=== PATIENT | male | born 1945 | race Caucasian/White ===

== ENCOUNTER → 2018-05-18 08:56 | Outpatient (CLI) | payer MEDICARE, SELFPAY ==
--- NOTE | 2018-05-18 | DI.US.S_ITS ---
PROCEDURE: US RETRO PERITONEAL LIMITED INDICATIONS: AAA TECHNIQUE: Real time scanning was performed of the aorta and iliac arteries, with image documentation. COMPARISON: None. FINDINGS: Aorta: Proximal aortic diameter measures 2.2 cm. Mid-aorta measures 1.9 cm. Distal aortic diameter is mildly aneurysmal measuring up to 3.0 cm AP and 3.7 cm transverse with a fusiform tapering above and below over 6.5 cm length. Iliac arteries: Right common iliac artery measures 1.2 cm. Left common iliac artery measures 1.3 cm. IMPRESSION: Distal abdominal aortic aneurysm with a maximal axial dimension measuring up to 3.7 cm transverse and 3.0 cm AP. Dictated by: Hayden Castro M.D. on 05/18/2018 at 12:54 Approved by: Hayden Castro M.D. on 05/18/2018 at 12:56
== END ==
PROVIDERS: Visit Provider Internal Medicine Cardiovascular Disease
DX: I71.4 Abdominal aortic aneurysm, without rupture (principal)
CPT/HCPCS: 76775

== ENCOUNTER → 2019-06-27 13:20 | Outpatient (CLI) | payer MEDICARE, SELFPAY ==
--- NOTE | 2019-06-27 | DI.US.S_ITS ---
PROCEDURE: US RETRO PERITONEAL LIMITED INDICATIONS: abdominal aortic aneurysm without rupture TECHNIQUE: Real time scanning was performed of the aorta and iliac arteries, with image documentation. COMPARISON: [facility], CT, IVP (ABD & PEL WWO CONTRAST), 12/24/2017, 10:51. [facility], US, US RETRO PERITONEAL LIMITED, 05/18/2018, 9:39. FINDINGS: Aorta: Proximal aortic diameter measures 2 cm. Mid-aorta measures 1.8 cm. There is a distal abnormal aortic aneurysm seen that measures 3.3 cm AP by 3.4 cm transversely, with a craniocaudal extent of 6.2 cm. Previously, this measured 3 x 3.7 x 6.5 cm. The aneurysm demonstrates mural thrombus. Iliac arteries: Right common iliac artery measures 1 cm. Left common iliac artery measures 0.9 cm. IMPRESSION: Distal abdominal aortic aneurysm, which is slightly increased in size compared to the prior ultrasound examination. Dictated by: Chuy Hurtado M.D. on 06/27/2019 at 17:27 Approved by: Chuy Hurtado M.D. on 06/27/2019 at 17:28
== END ==
PROVIDERS: Visit Provider Internal Medicine Cardiovascular Disease
DX: I71.4 Abdominal aortic aneurysm, without rupture (principal)
CPT/HCPCS: 76775

== ENCOUNTER → 2019-07-27 08:39 | Outpatient (CLI) | payer MEDICARE, SELFPAY ==
--- NOTE | 2019-07-27 | DI.US.S_ITS ---
PROCEDURE: US THYROID INDICATIONS: NONTOXIC SINGLE THYROID NODULE TECHNIQUE: Real-time scanning was performed of the thyroid gland, with image documentation. COMPARISON: None available at time of interpretation. FINDINGS: Right: Thyroid lobe measures 4.1 x 1.8 x 1.2 cm, and is homogeneous in echotexture. Left: Thyroid lobe measures 2.9 x 1.1 x 1.0 cm, and is homogenous in echotexture. Isthmus: 3.0 mm thick. Nodule number: 1 Location: Right superior Size: 1.7 x 1.1 x 1.0 cm. Composition: Predominantly solid Echogenicity: Isoechoic Shape: wider than tall. Margins: Smooth Echogenic foci: None Total points: 3 ACR TI-RADS category: Mildly suspicious IMPRESSION: Mildly suspicious right thyroid nodule. Recommend continued followup ultrasound as detailed below. ACR TI-RADS definitions and recommendations: TI-RADS 1 (benign): 0 points. FNA not needed. TI-RADS 2 (not suspicious): 2 points. FNA not needed. TI-RADS 3 (mildly suspicious): 3 points. * FNA if 2.5 cm or larger, follow up if 1.5 cm or larger (at 1, 3, and 5 years). TI-RADS 4 (moderately suspicious): 4-6 points. * FNA if 1.5 cm or larger, follow up if 1 cm or larger (at 1, 2, 3, and 5 years). TI-RADS 5 (highly suspicious): 7 points or more. * FNA if 1 cm or larger, follow up if 0.5 cm or larger (every year for 5 years). Dictated by: Ruy Valle [facility] Interpreted: Ashlee Smith MD on 08/02/2019 at 14:48 Approved by: Ashlee Smith MD, PhD on 08/02/2019 at 14:54
== END ==
PROVIDERS: PCP Internal Medicine; Visit Provider Internal Medicine
DX: E04.1 Nontoxic single thyroid nodule (principal)
CPT/HCPCS: 76536

== ENCOUNTER → 2020-01-11 11:20 | Outpatient (CLI) | payer MEDICARE, SELFPAY ==
[2020-01-11 12:39] LABS: Hemoglobin A1C% w Est Avg Glu 6.4 % (4.0-6.0)
[2020-01-11 12:57] LABS: Alanine Aminotransferase 17 IU/L (<50); Albumin 4.5 g/dL (3.5-5.0); Albumin Globulin Ratio 1.5 (1.0-2.8); Alkaline Phosphatase 82 U/L (38-126); Aspartate Aminotransferase 27 IU/L (17-59); BUN Creatinine Ratio 19.4 (6-22); Bilirubin Total 0.6 mg/dL (0.2-1.3); Blood Urea Nitrogen 21 mg/dL (9-20); Calcium 10.7 mg/dL (8.4-10.2); Carbon Dioxide 25 mmol/L (22-32); Chloride 107 mmol/L (98-107); Cholesterol 118 mg/dL (140-199); Estimated Glomerular Filt Rate > 60.0 mL/min (>60); Glucose 102 mg/dL (80-110); HDL Cholesterol 32 mg/dL (40-60); HEMOLYSIS < 15 (0-50); LDL Cholesterol Calculated 55 mg/dL (<100); Potassium 4.6 mmol/L (3.4-5.1); Sodium 143 mmol/L (137-145); Total Protein 7.5 g/dL (6.3-8.2); Triglycerides 153 mg/dL (35-150)
[2020-01-11 13:45] LABS: Vitamin B12 211 pg/mL (239-931)
== END ==
PROVIDERS: PCP Internal Medicine; Referring Provider Internal Medicine; Visit Provider Internal Medicine
DX: E78.5 Hyperlipidemia, unspecified (principal); I10 Essential (primary) hypertension; E11.9 Type 2 diabetes mellitus without complications
CPT/HCPCS: 36415; 80053; 80061; 82607; 83036

== ENCOUNTER → 2020-10-08 10:02 | Outpatient (CLI) | payer MEDICARE, SELFPAY ==
[2020-10-08 12:06] LABS: TSH w/ Reflex to FT4 5.27 uIU/mL (0.47-4.68)
[2020-10-08 18:44] LABS: Free T4, Direct Thyroxine 1.18 ng/dL (0.78-2.19)
== END ==
PROVIDERS: PCP Internal Medicine; Referring Provider Internal Medicine; Visit Provider Internal Medicine
DX: E03.9 Hypothyroidism, unspecified (principal)
CPT/HCPCS: 36415; 84439; 84443

== ENCOUNTER → 2021-01-30 09:16 | Outpatient (CLI) | payer MEDICARE, SELFPAY ==
[2021-01-30 11:09] LABS: Free T3, Triiodothyronine Free 3.27 pg/mL (2.77-5.27); Free T4, Direct Thyroxine 1.06 ng/dL (0.78-2.19)
== END ==
PROVIDERS: PCP Internal Medicine; Referring Provider Internal Medicine; Visit Provider Internal Medicine
DX: E03.9 Hypothyroidism, unspecified (principal)
CPT/HCPCS: 36415; 84439; 84443; 84481

== ENCOUNTER → 2021-06-24 10:08 | Outpatient (CLI) | payer MEDICARE, SELFPAY ==
[2021-06-24 11:14] LABS: Add Manual Diff / Slide Review NO; Basophils Absolute Auto 100 /uL (0-100); Basophils Percent Auto 1.2 % (0-2); Eosinophils Absolute Auto 300 /uL (0-450); Eosinophils Percent Auto 3.5 % (2-4); Hematocrit 44.9 % (41-53); Hemoglobin 15.2 g/dL (13.5-17.5); Lymphocytes Absolute Auto 2400 /uL (1100-4500); Lymphocytes Percent Auto 27.1 % (25-40); Mean Corpuscular HGB Conc 33.9 % (30-36); Mean Corpuscular Hemoglobin 29.3 PG (26-34); Mean Corpuscular Volume 86.6 fL (80-100); Monocytes Absolute Auto 600 /uL (0-900); Monocytes Percent Auto 6.3 % (3-14); Neutrophils Absolute Auto 5500 /uL (1500-7000); Neutrophils Percent Auto 61.9 % (50-75); Platelet Count 226 X10^3/uL (150-400); Red Blood Cell Count 5.19 X10^6/uL (4.5-5.9); Red Cell Distribution Width 14.5 % (11.6-14.8); White Blood Cell Count 8.9 X10^3/uL (4.5-11.0)
[2021-06-24 12:01] LABS: BUN Creatinine Ratio 11.3 (6-22); Blood Urea Nitrogen 14 mg/dL (9-20); Carbon Dioxide 30 mmol/L (22-32); Chloride 106 mmol/L (98-107); Cholesterol 141 mg/dL (140-199); Estimated Glomerular Filt Rate 56.7 mL/min (>60); Glucose 221 mg/dL (80-110); HDL Cholesterol 37 mg/dL (40-60); HEMOLYSIS < 15 (0-50); LDL Cholesterol Calculated 73 mg/dL (<100); Potassium 3.7 mmol/L (3.4-5.1); Sodium 147 mmol/L (137-145); Triglycerides 154 mg/dL (35-150)
== END ==
PROVIDERS: PCP Internal Medicine; Referring Provider Internal Medicine Cardiovascular Disease; Visit Provider Internal Medicine Cardiovascular Disease
DX: I10 Essential (primary) hypertension (principal); E78.5 Hyperlipidemia, unspecified
CPT/HCPCS: 36415; 80048; 80061; 85025

== ENCOUNTER → 2021-07-15 10:04 | Outpatient (CLI) | payer MEDICARE, SELFPAY ==
--- NOTE | 2021-07-15 | DI.US.S_ITS ---
PROCEDURE: US ABD AORTA ANEURYSM SCREEN INDICATIONS: Abdominal aortic aneurysm, without rupture TECHNIQUE: Real time scanning was performed of the aorta and iliac arteries, with image documentation. COMPARISON: [facility], CT, IVP (ABD & PEL WWO CONTRAST), 12/24/2017, 10:51. [facility], , US RETRO PERITONEAL LIMITED, 06/27/2019, 13:31. [facility], , US RETRO PERITONEAL LIMITED, 05/18/2018, 9:39. FINDINGS: Aorta: Proximal aortic diameter measures 2 cm. Mid-aorta measures 2.2 cm. A distal abdominal aortic aneurysm is again seen that measures 3.7 cm AP by 3.8 cm transversely, with a craniocaudal extent of 7 cm. Mural thrombus can be seen. Previously, this measured 3.3 cm AP x 3.4 cm transversely, with a craniocaudal extent of 6.2 cm. Iliac arteries: Right common iliac artery measures 1 cm. Left common iliac artery measures 1.1 cm. IMPRESSION: Mildly increased size of the known distal abdominal aortic aneurysm, which now measures 3.7 cm AP. Dictated by: Chuy Hurtado M.D. on 07/15/2021 at 10:18 Approved by: Chuy Hurtado M.D. on 07/15/2021 at 10:21
== END ==
PROVIDERS: PCP Family Medicine; Referring Provider Internal Medicine Cardiovascular Disease; Visit Provider Internal Medicine Cardiovascular Disease
DX: I71.4 Abdominal aortic aneurysm, without rupture (principal)
CPT/HCPCS: 76770

== ENCOUNTER → 2021-09-17 09:37 | Outpatient (CLI) | payer MEDICARE, SELFPAY ==
[2021-09-17 10:46] LABS: Hemoglobin A1C% w Est Avg Glu 6.2 % (4.0-6.0)
[2021-09-17 11:42] LABS: TSH w/ Reflex to FT4 6.41 uIU/mL (0.47-4.68)
[2021-09-17 12:18] LABS: Free T4, Direct Thyroxine 1.06 ng/dL (0.78-2.19)
[2021-09-17 14:55] LABS: Creatinine Urine Random 217.4 mg/dL
[2021-09-17 15:06] LABS: Microalbumi Creatinin Ratio Ur 11.4 ug/mg CR (<30); Microalbumin Urine Random 2.5 mg/dL (0-1.6)
== END ==
PROVIDERS: PCP Family Medicine; Referring Provider Family Medicine; Visit Provider Family Medicine
DX: E78.2 Mixed hyperlipidemia (principal); I10 Essential (primary) hypertension; K22.70 Barrett's esophagus without dysplasia; R73.9 Hyperglycemia, unspecified
CPT/HCPCS: 36415; 82043; 82570; 83036; 84439; 84443

== ENCOUNTER → 2021-09-20 11:32 | Outpatient (CLI) | payer MEDICARE, SELFPAY ==
--- NOTE | 2021-09-20 11:33 | DI.CT.S_ITS ---
PROCEDURE: CT LUNG LOW DOSE SCREENING INDICATIONS: >30 pack year smoking hx and current smoker TECHNIQUE: Noncontrast 2.0-2.5 mm thick sections acquired from the pulmonary apices to the posterior costophrenic angles. 7 mm thick axial MIP, and 5 mm coronal and sagittal reformats were then acquired. A low radiation dose technique was utilized. COMPARISON: None. FINDINGS: Image quality: Diagnostic, given the low radiation dose technique. Lungs and pleura: Centrilobular and paraseptal emphysematous changes . Faint subpleural reticulation, most prominent in the right lower lobe. No consolidation, pleural effusion, or pneumothorax. No suspicious pulmonary nodule or mass. Mediastinum: Heart size is normal. No pericardial effusion. No mediastinal adenopathy by size criteria. Thoracic aorta and central pulmonary arteries are normal in size. Calcified atheromatous change of the aorta. Esophagus is normal in caliber. No hiatal hernia. Bones and chest wall: Multilevel degenerative change. No vertebral body compression fractures. No axillary or supraclavicular adenopathy by size criteria. Mild heterogeneity of the right thyroid, likely reflecting the previously demonstrated nodule. Abdomen: Visualized upper abdomen solid organs and bowel loops appear normal in the absence of contrast. IMPRESSION: No significant abnormality. LUNG-RADS 1; continue annual screening in 12 months. Dictated by: Hesham Junior M.D. on 09/20/2021 at 13:31 Approved by: Hesham Junior M.D. on 09/20/2021 at 13:44
== END ==
PROVIDERS: PCP Family Medicine; Referring Provider Family Medicine; Visit Provider Family Medicine
DX: Z13.89 Encounter for screening for other disorder (principal); Z12.2 Encounter for screening for malignant neoplasm of respiratory organs; F17.200 Nicotine dependence, unspecified, uncomplicated
CPT/HCPCS: 71250

== ENCOUNTER 2022-03-04 13:14 | Day surgery (SDC) | payer MEDICARE, SELFPAY ==
--- NOTE | 2022-03-04 | PATH_ITS ---
[facility] Accession Number: [id number] No. of containers..01 Tissue . 01 Material submitted: . esophagus, E-G Junction - GE JUNCTION BIOPSY . 01 Diagnosis: Gastroesophageal Junction, Biopsy: Squamocolumnar junctional mucosa with specialized intestinal metaplasia, consistent with Lraose's esophagus. Negative for dysplasia and malignancy. V 03/06/2022 1400 Local . 01 Electronically signed: . Vijaya Valdivia MD, Pathologist NPI- [id number] . 01 Gross description: . Received in formalin in a specimen container, labeled with the patient's name and medical record number, designated GE junction, is a single piece of tissue fragment that measures 0.2 cm in diameter. The specimen is entirely submitted in cassette A1 ([id number]) /FRR 03/06/2022 0241 Local . 01 Pathologist provided ICD-10: K22.70 . 01 CPT . 612176 Specimen Comment: A courtesy copy of this report has been sent to [phone] Performed at: 01 [facility] [address] [place] [address] [id number] MD Pablo Vila MD Phone: [phone]
[2022-03-04 05:08] VITALS: BP 127/70; PULSE 56; RESP 16; O2SAT 98
[2022-03-04 13:33] VITALS: BP 157/77; PULSE 75; RESP 16; TEMP 36.3; O2SAT 99; BMI 23.0
[2022-03-04] MEDS: LACTATED RINGERS 1,000 ML 200 ML IV (14:00)
[2022-03-04 14:08] VITALS: BMI 23.0
[2022-03-04 14:22] LABS: COVID19 -Nasal RAPID Negative (Negative)
--- NOTE | 2022-03-04 14:30 | PM.PREOP ---
Pre-operative Note Interval Note History & Physical reviewed/Exam performed by Physician: Yes Changes to H&P: No
[2022-03-04] MEDS: LIDOCAINE 4% SOLN 50 ML 20 ML TOP (14:45)
[2022-03-04] MEDS: fentaNYL 250 MCG/5 ML INJ 100 MCG IV (14:48)
[2022-03-04] MEDS: MIDAZOLAM 5 MG/5 ML VIAL 4 MG IV (14:48)
--- NOTE | 2022-03-04 14:57 | PM.OP.EGD ---
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 Time out was performed. Procedural sedation was administered with Versed and Fentanyl. A bite block was placed. the scope was inserted into the mouth and advanced through the esophagus and into the stomach. The pylorus was intubated and the duodenum was normal to the 2nd portion. The scope was retroflexed within the stomach and there was no hiatal hernia. No ulcers, or gastritis. The scope was withdrawn into the esophagus the Z line was seen at 40 cm from the incisions. There was no humberto Larose's masses or strictures. A biopsy of the GE junction was performed forceps. Stomach was desufflated and scope removed. Patient tolerated procedure well. Specimen(s): other (GE junction) Complications: none Impression: Normal esophagoduodenoscopy Post-procedure Plan for aftercare: Will notify with pathology Disposition: same day surgery
[2022-03-04 14:58] VITALS: BP 137/73; PULSE 73; RESP 16; TEMP 36.3; O2SAT 92
[2022-03-04 15:03] VITALS: BP 127/66; PULSE 62; RESP 18; TEMP 37.5; O2SAT 95
[2022-03-04 15:13] VITALS: BP 136/75; PULSE 63; RESP 15; O2SAT 98
[2022-03-04 15:20] VITALS: BP 137/71; PULSE 60; RESP 16; TEMP 36.1; O2SAT 97
== END 2022-03-04 15:32 | disposition home or self-care (01) ==
PROVIDERS: PCP Family Medicine; Referring Provider Surgery; Visit Provider Surgery
PROC: 0DJ08ZZ Inspection of Upper Intestinal Tract, Via Natural or Artificial Opening Endoscopic (ICD-10-PCS; CPT 43235; principal; 2022-03-04 14:30)
DX: K22.70 Barrett's esophagus without dysplasia (principal); Z87.19 Personal history of other diseases of the digestive system; Z20.822 Contact with and (suspected) exposure to COVID-19
CPT/HCPCS: 43239; 87635; C9803; J2250; J3010

== ENCOUNTER → 2022-06-13 09:43 | Outpatient (CLI) | payer MEDICARE, SELFPAY ==
[2022-06-13 10:41] LABS: Add Manual Diff / Slide Review NO; Basophils Absolute Auto 100 /uL (0-100); Basophils Percent Auto 1.2 % (0-2); Eosinophils Absolute Auto 100 /uL (0-450); Eosinophils Percent Auto 1.4 % (2-4); Hematocrit 43.3 % (41-53); Hemoglobin 14.7 g/dL (13.5-17.5); Lymphocytes Absolute Auto 2000 /uL (1100-4500); Lymphocytes Percent Auto 22.5 % (25-40); Mean Corpuscular HGB Conc 33.9 % (30-36); Mean Corpuscular Hemoglobin 28.6 PG (26-34); Mean Corpuscular Volume 84.4 fL (80-100); Monocytes Absolute Auto 600 /uL (0-900); Monocytes Percent Auto 6.9 % (3-14); Neutrophils Absolute Auto 6100 /uL (1500-7000); Platelet Count 197 X10^3/uL (150-400); Red Blood Cell Count 5.12 X10^6/uL (4.5-5.9)
[2022-06-13 10:50] LABS: Hemoglobin A1C% w Est Avg Glu 5.9 % (4.0-6.0)
[2022-06-13 11:00] LABS: Alanine Aminotransferase 13 IU/L (<50); Albumin 4.2 g/dL (3.5-5.0); Albumin Globulin Ratio 1.4 (1.0-2.8); Alkaline Phosphatase 92 U/L (38-126); Aspartate Aminotransferase 22 IU/L (17-59); BUN Creatinine Ratio 15.9 (6-22); Bilirubin Total 0.8 mg/dL (0.2-1.3); Blood Urea Nitrogen 20 mg/dL (9-20); Calcium 9.4 mg/dL (8.4-10.2); Carbon Dioxide 27 mmol/L (22-32); Chloride 106 mmol/L (98-107); Cholesterol 122 mg/dL (140-199); Estimated Glomerular Filt Rate 59 mL/min (>60); Glucose 99 mg/dL (80-110); HDL Cholesterol 38 mg/dL (40-60); HEMOLYSIS < 15 (0-50); LDL Cholesterol Calculated 61 mg/dL (<100); Potassium 3.9 mmol/L (3.4-5.1); Sodium 145 mmol/L (137-145); Total Protein 7.2 g/dL (6.3-8.2); Triglycerides 116 mg/dL (35-150)
[2022-06-13 11:26] LABS: Prostate Specific Antigen Scrn 0.641 ng/mL (0.1-4.0)
[2022-06-13 11:27] LABS: TSH w/ Reflex to FT4 5.95 uIU/mL (0.47-4.68)
[2022-06-13 12:15] LABS: Free T4, Direct Thyroxine 1.39 ng/dL (0.78-2.19)
[2022-06-13 16:14] LABS: Creatinine Urine Random 163.8 mg/dL
[2022-06-13 16:18] LABS: Microalbumi Creatinin Ratio Ur 22.5 ug/mg CR (<30); Microalbumin Urine Random 3.7 mg/dL (0-1.6)
== END ==
PROVIDERS: PCP Family Medicine; Referring Provider Family Medicine; Visit Provider Family Medicine
DX: E03.9 Hypothyroidism, unspecified (principal); Z87.898 Personal history of other specified conditions; I10 Essential (primary) hypertension; Z12.5 Encounter for screening for malignant neoplasm of prostate; E78.2 Mixed hyperlipidemia; R73.9 Hyperglycemia, unspecified
CPT/HCPCS: 36415; 80053; 80061; 82043; 82570; 83036; 84439; 84443; 85025; G0103

== ENCOUNTER → 2022-08-28 10:07 | Outpatient (CLI) | payer MEDICARE, SELFPAY ==
--- NOTE | 2022-08-28 10:10 | DI.US.S_ITS ---
PROCEDURE: US RETRO PERITONEAL LIMITED INDICATIONS: AORTIC ANEURYSM WITHOUT RUPTURE TECHNIQUE: Real time scanning was performed of the aorta and iliac arteries, with image documentation. COMPARISON: [facility], RETRO PERITONEAL LIMITED, 05/18/2018, 9:39. [facility], ABD AORTA ANEURYSM SCREEN, 07/15/2021, 10:51. [facility], RETRO PERITONEAL LIMITED, 06/27/2019, 13:31. FINDINGS: Aorta: Proximal aortic diameter measures 2.3 cm. Mid-aorta measures 2 cm. A fusiform distal abdominal aortic aneurysm is seen, which measures 4.3 cm AP, with a transverse extent of 4 cm scanned a craniocaudal length of 7.2 cm. Previously, this measured 3.7 x 3.8 x 7 cm. Iliac arteries: Right common iliac artery measures 1.6 cm. Left common iliac artery measures 1.2 cm. IMPRESSION: Distal abdominal aortic aneurysm seen, which is slightly increased in size compared to the prior. Dictated by: Chuy Hurtado M.D. on 08/28/2022 at 11:53 Approved by: Chuy Hurtado M.D. on 08/28/2022 at 11:54
== END ==
PROVIDERS: PCP Family Medicine; Referring Provider Internal Medicine Cardiovascular Disease; Visit Provider Internal Medicine Cardiovascular Disease
DX: I71.40 Abdominal aortic aneurysm, without rupture, unspecified (principal)
CPT/HCPCS: 76775

== ENCOUNTER → 2022-09-03 07:54 | Outpatient (CLI) | payer MEDICARE, SELFPAY ==
--- NOTE | 2022-09-03 | DI.ECHO.S_ITS ---
[facility] +---------+ [facility] +---------+ : : [address] : : : : [id number] : : : : Phone: [phone]+ Echocardiogram Report + + :Name: ARUN REYES Study Date: 09/03/2022 Height: 70 in : :[facility] ReadingLocation: Weight: 160 lb : : Gender: Male BSA: 1.9 m2 : :: 1945 Age: 76 yrs BP: 155/89 mmHg: :Reason For Study: MURMUR, AAA : :Ordering Physician: SINCERE, : :MINESH Performed By: Elayne Villafana : :Referring: MINESH FLORES : + + Interpretation Summary 1) Normal left ventricular thickness, size, wall motion, and systolic function (EF 60-65%). 2) Normal right ventricular size and function. 3) Sclerotic aortic valve with minimal aortic stenosis (mean gradient 5mmHg, valve area 2.0cm2). 4) No prior Echo available for comparison. Procedure: A two-dimensional transthoracic echocardiogram with color flow and Doppler was performed. The study quality was technically good. There is no prior echocardiogram noted for this patient. The patient was in sinus rhythm with heart rates between 62-68 bpm during the exam. Left Ventricle: The left ventricle is normal in size and wall thickness. The ejection fraction is estimated to be 60-65%. Left ventricular systolic function appears normal without focal wall motion abnormalities. Diastolic parameters suggest a relaxation abnormality of the left ventricle, consistent with probable normal filling pressures. Right Ventricle: The right ventricle is normal in size and function. Atria: The left atrium is moderately dilated. Right atrial size is normal. There is no Doppler evidence for an interatrial shunt. Mitral Valve: The mitral valve is normal in structure and function. There is trace mitral regurgitation. Aortic Valve: The aortic valve is trileaflet. The aortic valve is slightly calcified. Sclerotic aortic valve with minimal aortic stenosis (mean gradient 5mmHg, valve area 2.0cm2). No aortic regurgitation is present. Tricuspid Valve: The tricuspid valve is normal in structure and function. There is mild tricuspid regurgitation. The right ventricular systolic pressure is estimated to be at least 20 mmHg based on an estimated right atrial pressure of 3 mm Hg. Pulmonic Valve: The pulmonic valve leaflets are thin and pliable; valve motion is normal. There is mild pulmonic regurgitation. Great Vessels: The aortic root is normal size. The dimensions of the ascending aorta are normal. The aortic arch could not be visualized. The IVC is of normal diameter and collapses greater than 50% with a sniff. This suggests a low right atrial pressure of 3 mm Hg. Pericardium/ Pleura There is no pericardial effusion. There is no pleural effusion. MMode/2D Measurements & Calculations LVIDd: 5.1 cm LVOT diam: 2.1 cm LVIDs: 3.1 cm Ao root diam: 3.0 cm FS: 38.8 % asc Aorta Diam: 3.4 cm EPSS: 0.73 cm IVSd: 0.87 cm LVPWd: 0.95 cm LV agosto. diameter/BSA (cm/m^2): 2.7 LV sys. diameter/BSA (cm/m^2): 1.6 LA A2 area: 21.9 cm2 RA long axis: 5.1 cm LA A4 area: 17.9 cm2 RA area: 14.6 cm2 LA length (vol): 4.9 cm RA vol: 35.5 ml LA vol: 68.6 ml RA : 18.7 ml/m2 LA vol index: 36.1 ml/m2 IVC diam: 1.4 cm RVD1 (basal): 2.8 cm TAPSE: 2.4 cm Doppler Measurements & Calculations Ao V2 max: 155.0 cm/sec LVOT Max Med: 82.2 cm/sec Ao V2 mean: 105.7 cm/sec LV V1 max P.7 mmHg Ao max P.6 mmHg LV V1 VTI: 19.0 cm Ao mean P.1 mmHg JUDAH(I,D): 2.0 cm2 Ao V2 VTI: 32.2 cm JUDAH(V,D): 1.8 cm2 sev ratio: 0.59 JUDAH indexed to BSA (cm^2/m^2): 1.0 MV E max med: 63.9 cm/sec TR max med: 203.0 cm/sec MV A max med: 85.4 cm/sec TR max P.5 mmHg MV E/A: 0.75 PA V2 max: 93.0 cm/sec Med Peak E' Med: 6.5 cm/sec PA V2 mean: 65.3 cm/sec E/E' med: 9.8 PA mean P.9 mmHg Lat Peak E' Med: 6.7 cm/sec PA pr(Accel): 25.9 mmHg E/E' lat: 9.5 E/e' average: 9.7 MV dec time: 0.22 sec SV(LVOT): 63.3 ml Reading Physician:10:55 AM
== END ==
PROVIDERS: PCP Family Medicine; Referring Provider Internal Medicine Cardiovascular Disease; Visit Provider Internal Medicine Cardiovascular Disease
DX: I37.1 Nonrheumatic pulmonary valve insufficiency (principal); I07.1 Rheumatic tricuspid insufficiency; I71.40 Abdominal aortic aneurysm, without rupture, unspecified; R01.1 Cardiac murmur, unspecified
CPT/HCPCS: 93306

== ENCOUNTER → 2022-09-08 08:24 | Outpatient (CLI) | payer MEDICARE, SELFPAY ==
[2022-09-08 08:54] LABS: Add Manual Diff / Slide Review NO; Basophils Absolute Auto 100 /uL (0-100); Basophils Percent Auto 1.2 % (0-2); Eosinophils Absolute Auto 300 /uL (0-450); Eosinophils Percent Auto 3.5 % (2-4); Hemoglobin 15.8 g/dL (13.5-17.5); Lymphocytes Absolute Auto 2900 /uL (1100-4500); Lymphocytes Percent Auto 30.7 % (25-40); Mean Corpuscular HGB Conc 33.6 % (30-36); Mean Corpuscular Hemoglobin 28.9 PG (26-34); Monocytes Absolute Auto 700 /uL (0-900); Monocytes Percent Auto 7.8 % (3-14); Neutrophils Absolute Auto 5300 /uL (1500-7000); Neutrophils Percent Auto 56.8 % (50-75); Platelet Count 192 X10^3/uL (150-400); Red Blood Cell Count 5.47 X10^6/uL (4.5-5.9); Red Cell Distribution Width 14.9 % (11.6-14.8); White Blood Cell Count 9.4 X10^3/uL (4.5-11.0)
[2022-09-08 09:11] LABS: BUN Creatinine Ratio 16.2 (6-22); Blood Urea Nitrogen 18 mg/dL (9-20); Calcium 9.5 mg/dL (8.4-10.2); Carbon Dioxide 26 mmol/L (22-32); Chloride 106 mmol/L (98-107); Cholesterol 149 mg/dL (140-199); Estimated Glomerular Filt Rate > 60 mL/min (>60); Glucose 129 mg/dL (80-110); HDL Cholesterol 41 mg/dL (40-60); HEMOLYSIS < 15 (0-50); LDL Cholesterol Calculated 78 mg/dL (<100); Potassium 3.8 mmol/L (3.4-5.1); Sodium 144 mmol/L (137-145); Triglycerides 150 mg/dL (35-150)
== END ==
PROVIDERS: PCP Family Medicine; Referring Provider Internal Medicine Cardiovascular Disease; Visit Provider Internal Medicine Cardiovascular Disease
DX: E78.5 Hyperlipidemia, unspecified (principal); I10 Essential (primary) hypertension
CPT/HCPCS: 36415; 80048; 80061; 85025

== ENCOUNTER → 2022-10-06 09:56 | Outpatient (CLI) | payer MEDICARE, SELFPAY ==
--- NOTE | 2022-10-06 | DI.CT.S_ITS ---
PROCEDURE: CT CHEST WO CON INDICATIONS: personal history of nicotine dependence TECHNIQUE: Noncontrast 2.0-2.5 mm thick sections acquired from the pulmonary apices to the posterior costophrenic angles. 7 mm thick axial MIP, and 5 mm coronal and sagittal reformats were then acquired. A low radiation dose technique was utilized. COMPARISON: [facility], CT, CT LUNG LOW DOSE SCREENING, 09/20/2021, 11:39. FINDINGS: Image quality: Diagnostic, given the low radiation dose technique. Lungs and pleura: Moderate emphysematous change. Left upper lobe spiculated pulmonary nodule measuring 0.5 cm, (3/81), new. A few small calcified granulomas. No mass. Several areas of distal mucus airway plugging. Mild bronchial wall thickening. No bronchiectasis. Central airways are clear. Mediastinum: Heart size is normal. Three-vessel coronary artery calcifications. No pericardial effusion. No mediastinal adenopathy by size criteria. Mediastinal lymph nodes are within normal limits and unchanged. Thoracic aorta and central pulmonary arteries are normal in size. Esophagus is normal in caliber. No hiatal hernia. Bones and chest wall: No suspicious bony lesions. No vertebral body compression fractures. No axillary or supraclavicular adenopathy by size criteria. Thyroid gland is unremarkable. Abdomen: Visualized upper abdomen solid organs and bowel loops appear normal in the absence of contrast. IMPRESSION: 1. Left upper lobe spiculated pulmonary nodule measuring 0.5 cm, new. LUNG-RADS 3. Recommend follow-up chest CT in 6 months. 2. Severe three-vessel coronary artery calcifications. Dictated by: Esteban Lewis M.D. on 10/06/2022 at 14:13 Approved by: Esteban Lewis M.D. on 10/06/2022 at 14:21
== END ==
PROVIDERS: PCP Family Medicine; Referring Provider Family Medicine; Visit Provider Family Medicine
DX: R91.1 Solitary pulmonary nodule (principal); I25.10 Atherosclerotic heart disease of native coronary artery without angina pectoris; Z87.891 Personal history of nicotine dependence
CPT/HCPCS: 71250

== ENCOUNTER → 2023-04-01 15:54 | Outpatient (CLI) | payer MEDICARE, SELFPAY ==
--- NOTE | 2023-04-01 15:56 | DI.US.S_ITS ---
PROCEDURE: US RETRO PERITONEAL LIMITED INDICATIONS: DISTAL ABDOMINAL AORTIC ANEURYSM TECHNIQUE: Real time scanning was performed of the aorta and iliac arteries, with image documentation. COMPARISON: [facility], , RETRO PERITONEAL LIMITED, 08/28/2022, 10:21. FINDINGS: Aorta: Proximal aortic diameter measures 1.9 cm, stable. Mid-aorta measures 2.0 cm, stable. Distal aortic diameter is 4.7 x 4.7 cm for a length of 8.7 cm. Cross-sectional diameter has increased compared to 4.0 x 4.3 cm in 08/28/22. There is a centric noncalcified mural thrombus in the aneurysm sac is, similar compared to previous. No visible periaortic fluid. Iliac arteries: Right common iliac artery measures 1.2 cm, stable. Left common iliac artery measures 1.1 cm, stable. IMPRESSION: 1. Greater than 5 mm increase in size of distal abdominal aortic aneurysm in approximately six months. Consider vascular surgery consultation or endovascular treatment. 2. Remainder of the aorta and proximal common iliac arteries is stable diameter. Dictated by: Vivien Rees M.D. on 04/01/2023 at 17:03 Approved by: Vivien Rees M.D. on 04/01/2023 at 17:10
== END ==
PROVIDERS: PCP Family Medicine; Referring Provider Internal Medicine Cardiovascular Disease; Visit Provider Internal Medicine Cardiovascular Disease
DX: I71.40 Abdominal aortic aneurysm, without rupture, unspecified (principal)
CPT/HCPCS: 76775

== ENCOUNTER → 2023-07-16 07:57 | Outpatient (CLI) | payer MEDICARE, SELFPAY ==
--- NOTE | 2023-07-16 | DI.US.S_ITS ---
PROCEDURE: US ABD AORTA ANEURYSM SCREEN INDICATIONS: KNOWN DISTAL AORTIC ANERUYSM TECHNIQUE: Real time scanning was performed of the aorta and iliac arteries, with image documentation. COMPARISON: [facility], RETRO PERITONEAL LIMITED, 04/01/2023, 16:40. [facility], ABD AORTA ANEURYSM SCREEN, 07/15/2021, 10:51. [facility], RETRO PERITONEAL LIMITED, 06/27/2019, 13:31. FINDINGS: Aorta: Proximal aortic diameter measures 2.2 cm. Mid-aorta measures 1.8 cm. There is a fusiform distal abdominal aortic aneurysm seen, measuring 5 x 5 cm in greatest axial dimension, with a craniocaudal extent of 8.8 cm. Previously, this measured 4.7 x 4.7 x 4.7 cm. Mural thrombus can be seen. Iliac arteries: Right common iliac artery measures 1.1 cm. Left common iliac artery measures 0.9 cm. IMPRESSION: 5 cm distal abdominal aortic aneurysm, with progressive increase in size. Please consider vascular surgery/interventional radiology consultation. Dictated by: Chuy Hurtado M.D. on 07/16/2023 at 12:27 Approved by: Chuy Hurtado M.D. on 07/16/2023 at 12:29
== END ==
PROVIDERS: PCP Family Medicine; Referring Provider Internal Medicine Cardiovascular Disease; Visit Provider Internal Medicine Cardiovascular Disease
DX: I71.40 Abdominal aortic aneurysm, without rupture, unspecified (principal)
CPT/HCPCS: 76706

== ENCOUNTER → 2023-09-18 12:53 | Outpatient (CLI) | payer MEDICARE, SELFPAY ==
--- NOTE | 2023-09-18 12:54 | DI.CT.S_ITS ---
PROCEDURE: CT LUNG LOW DOSE SCREENING INDICATIONS: 30+ year smoking hx TECHNIQUE: Noncontrast 2.0-2.5 mm thick sections acquired from the pulmonary apices to the posterior costophrenic angles. 7 mm thick axial MIP, and 5 mm coronal and sagittal reformats were then acquired. For radiation dose reduction, the following was used: automated exposure control, adjustment of mA and/or kV according to patient size. COMPARISON: [facility], CT, CT CHEST WO CON, 10/06/2022, 10:24. [facility], CT, CT LUNG LOW DOSE SCREENING, 09/20/2021, 11:39. FINDINGS: Image quality: Diagnostic. Lower Neck: No enlarged lymph nodes. Thyroid: No thyroid nodules which require sonographic follow up, per consensus guidelines. Axillae: No enlarged lymph nodes. Chest Wall: Unremarkable. Bones: Unremarkable. Lungs and Pleura: Previously described 5 mm spiculated left upper lobe nodule is no longer seen. No new pulmonary nodule or mass is seen. Dependent atelectasis in posterior aspect of bilateral lung lind are seen with mild reticular thickening in periphery of bilateral lower lobes. Mild centrilobular emphysema is again noted and unchanged. No pneumothorax or pleural effusions. Heart: Heart size is normal. No pericardial effusion. Thoracic Vessels: The aorta and pulmonary arteries demonstrate normal size. Moderate atherosclerotic calcifications involving 3 coronary vessels are noted. Mediastinum and [place]: No enlarged lymph nodes. Esophagus: No wall thickening. No hiatal hernia. Upper Abdomen: Visualized upper abdomen solid organs and bowel loops appear normal. IMPRESSION: 1. Previously described 5 mm spiculated in nodule is no longer seen. No suspicious pulmonary nodule is seen on the current study. Mild centrilobular emphysema. Bibasilar dependent atelectasis. LUNG-RADS 1, continued annual screening, if eligible. Clinically Significant Non-pulmonary Findings: Moderate three-vessel coronary artery calcifications. Dictated by: Sb Ambrose M.D. on 09/18/2023 at 15:06 Approved by: Sb Ambrose M.D. on 09/18/2023 at 15:12
== END ==
LOC: CT 12:54
PROVIDERS: PCP Family Medicine; Referring Provider Family Medicine; Visit Provider Family Medicine
DX: F17.210 Nicotine dependence, cigarettes, uncomplicated (principal); Z12.2 Encounter for screening for malignant neoplasm of respiratory organs; J43.2 Centrilobular emphysema; J98.11 Atelectasis; I25.10 Atherosclerotic heart disease of native coronary artery without angina pectoris
CPT/HCPCS: 71250; 71271

== ENCOUNTER → 2023-09-22 07:14 | Outpatient (CLI) | payer MEDICARE, SELFPAY ==
[2023-09-22 10:25] LABS: Alanine Aminotransferase 16 IU/L (<50); Albumin 4.3 g/dL (3.5-5.0); Albumin Globulin Ratio 1.5 (1.0-2.8); Alkaline Phosphatase 78 U/L (38-126); Aspartate Aminotransferase 26 IU/L (17-59); BUN Creatinine Ratio 15.4 (6-22); Bilirubin Total 0.8 mg/dL (0.2-1.3); Blood Urea Nitrogen 20 mg/dL (9-20); Carbon Dioxide 27 mmol/L (22-32); Chloride 106 mmol/L (98-107); Cholesterol 92 mg/dL (140-199); Estimated Glomerular Filt Rate 56 mL/min (>60); Globulin 2.9 g/dL (1.7-4.1); Glucose 115 mg/dL (80-110); HDL Cholesterol 35 mg/dL (40-60); HEMOLYSIS < 15 (0-50); LDL Cholesterol Calculated 39 mg/dL (<100); Potassium 3.9 mmol/L (3.4-5.1); Sodium 143 mmol/L (137-145); Total Protein 7.2 g/dL (6.3-8.2); Triglycerides 90 mg/dL (35-150)
[2023-09-22 10:59] LABS: TSH w/ Reflex to FT4 7.31 uIU/mL (0.47-4.68)
[2023-09-22 11:01] LABS: Creatinine Urine Random 120.9 mg/dL
[2023-09-22 11:17] LABS: Microalbumi Creatinin Ratio Ur 15.7 ug/mg CR (<30); Microalbumin Urine Random 1.9 mg/dL (0-1.6)
[2023-09-22 12:44] LABS: Hemoglobin A1C% w Est Avg Glu 5.7 % (4.0-6.0)
[2023-09-22 13:13] LABS: Free T4, Direct Thyroxine 1.18 ng/dL (0.78-2.19)
[2023-09-23 03:11] LABS: Apolipoprotein B 56 mg/dL (<90)
== END ==
PROVIDERS: PCP Family Medicine; Referring Provider Family Medicine; Visit Provider Family Medicine
DX: Z00.00 Encounter for general adult medical examination without abnormal findings (principal); I71.40 Abdominal aortic aneurysm, without rupture, unspecified; R73.03 Prediabetes; E03.9 Hypothyroidism, unspecified; Z12.5 Encounter for screening for malignant neoplasm of prostate; E78.5 Hyperlipidemia, unspecified; I10 Essential (primary) hypertension
CPT/HCPCS: 36415; 80053; 80061; 82043; 82172; 82570; 83036; 84439; 84443; G0103

== ENCOUNTER → 2024-06-22 07:10 | Outpatient (CLI) | payer MEDICARE, SELFPAY ==
[2024-06-22 08:10] LABS: Hemoglobin 14.6 g/dL (13.5-17.5); Mean Corpuscular HGB Conc 33.3 % (30-36); Platelet Count 189 X10^3/uL (150-400); Red Blood Cell Count 5.06 X10^6/uL (4.5-5.9); Red Cell Distribution Width 14.6 % (11.6-14.8); White Blood Cell Count 9.4 X10^3/uL (4.5-11.0)
[2024-06-22 08:35] LABS: BUN Creatinine Ratio 18.1 (6-22); Blood Urea Nitrogen 23 mg/dL (9-20); Calcium 9.7 mg/dL (8.4-10.2); Carbon Dioxide 26 mmol/L (22-32); Chloride 106 mmol/L (98-107); Cholesterol 107 mg/dL (140-199); Estimated Glomerular Filt Rate 57 mL/min (>60); Glucose 92 mg/dL (80-110); HDL Cholesterol 40 mg/dL (40-60); HEMOLYSIS < 15 (0-50); LDL Cholesterol Calculated 41 mg/dL (<100); Potassium 4.1 mmol/L (3.4-5.1); Sodium 141 mmol/L (137-145); Triglycerides 132 mg/dL (35-150)
== END ==
PROVIDERS: PCP Family Medicine; Referring Provider Internal Medicine Cardiovascular Disease; Visit Provider Internal Medicine Cardiovascular Disease
DX: I10 Essential (primary) hypertension (principal); E78.5 Hyperlipidemia, unspecified
CPT/HCPCS: 36415; 80048; 80061; 85027

== ENCOUNTER → 2024-09-21 09:44 | Outpatient (CLI) | payer MEDICARE, SELFPAY ==
--- NOTE | 2024-09-21 10:08 | DI.CT.S_ITS ---
PROCEDURE: CT LUNG LOW DOSE SCREENING INDICATIONS: Nicotine dependence, cigarettes, uncomplicated TECHNIQUE: Noncontrast 2.0-2.5 mm thick sections acquired from the pulmonary apices to the posterior costophrenic angles. 7 mm thick axial MIP, and 5 mm coronal and sagittal reformats were then acquired. For radiation dose reduction, the following was used: automated exposure control, adjustment of mA and/or kV according to patient size. COMPARISON: [facility], CT, CT LUNG LOW DOSE SCREENING, 09/20/2021, 11:39. FINDINGS: Image quality: Diagnostic. Lower Neck: No enlarged lymph nodes. Thyroid: No thyroid nodules which require sonographic follow up, per consensus guidelines. Axillae: No enlarged lymph nodes. Chest Wall: Unremarkable. Bones: Unremarkable. Lungs and Pleura: No pneumothorax or pleural effusions. Moderate centrilobular emphysema. A few subsegmental endobronchial filling defects, largest measuring 2-3 mm in the right upper lobe (series 3, image 93). Mild peripheral reticulation, probably senescent fibrosis. A few solid pulmonary micro nodules are present. Heart: Heart size is normal. No pericardial effusion. Three-vessel coronary artery calcifications. Thoracic Vessels: The aorta and pulmonary arteries demonstrate normal size. Mediastinum and Mor[place]: No enlarged lymph nodes. Esophagus: No wall thickening. No hiatal hernia. Upper Abdomen: Stable hypoattenuating lesion at the liver dome, probably a small cyst. IMPRESSION: No suspicious pulmonary nodules. LUNG-RADS 2; continued annual screening, if eligible. Clinically Significant Non-pulmonary Findings: Marked coronary artery calcifications for age. Correlate with risk factors and advise counseling. Dictated by: London Mtz M.D. on 09/21/2024 at 14:09 Approved by: London Mtz M.D. on 09/21/2024 at 14:11
== END ==
PROVIDERS: PCP Family Medicine; Referring Provider Family Medicine; Visit Provider Family Medicine
DX: J43.2 Centrilobular emphysema (principal); I25.10 Atherosclerotic heart disease of native coronary artery without angina pectoris; F17.210 Nicotine dependence, cigarettes, uncomplicated; Z12.11 Encounter for screening for malignant neoplasm of colon
CPT/HCPCS: 71271

== ENCOUNTER → 2024-09-29 07:19 | Outpatient (CLI) | payer MEDICARE, SELFPAY ==
[2024-09-29 08:02] LABS: Add Manual Diff / Slide Review NO; Basophils Absolute Auto 0 /uL (0-100); Basophils Percent Auto 0.4 % (0-2); Eosinophils Absolute Auto 500 /uL (0-450); Eosinophils Percent Auto 3.9 % (2-4); Hematocrit 43.1 % (41-53); Lymphocytes Absolute Auto 2900 /uL (1100-4500); Lymphocytes Percent Auto 24.9 % (25-40); Mean Corpuscular HGB Conc 32.6 % (30-36); Mean Corpuscular Hemoglobin 28.3 PG (26-34); Mean Corpuscular Volume 86.9 fL (80-100); Monocytes Absolute Auto 900 /uL (0-900); Monocytes Percent Auto 7.5 % (3-14); Neutrophils Absolute Auto 7300 /uL (1500-7000); Neutrophils Percent Auto 63.3 % (50-75); Platelet Count 225 X10^3/uL (150-400); Red Blood Cell Count 4.96 X10^6/uL (4.5-5.9); Red Cell Distribution Width 14.8 % (11.6-14.8); White Blood Cell Count 11.6 X10^3/uL (4.5-11.0)
[2024-09-29 08:15] LABS: Hemoglobin A1C% w Est Avg Glu 5.4 % (4.0-6.0)
[2024-09-29 08:23] LABS: Alanine Aminotransferase 14 IU/L (<50); Albumin 4.4 g/dL (3.5-5.0); Albumin Globulin Ratio 1.6 (1.0-2.8); Alkaline Phosphatase 86 U/L (38-126); Aspartate Aminotransferase 22 IU/L (17-59); BUN Creatinine Ratio 18.5 (6-22); Bilirubin Total 0.4 mg/dL (0.2-1.3); Blood Urea Nitrogen 28 mg/dL (9-20); Calcium 9.7 mg/dL (8.4-10.2); Carbon Dioxide 24 mmol/L (22-32); Chloride 110 mmol/L (98-107); Cholesterol 113 mg/dL (140-199); Estimated Glomerular Filt Rate 47 mL/min (>60); Globulin 2.7 g/dL (1.7-4.1); Glucose 102 mg/dL (80-110); HDL Cholesterol 40 mg/dL (40-60); HEMOLYSIS < 15 (0-50); LDL Cholesterol Calculated 29 mg/dL (<100); Potassium 4.1 mmol/L (3.4-5.1); Sodium 143 mmol/L (137-145); Total Protein 7.1 g/dL (6.3-8.2); Triglycerides 218 mg/dL (35-150)
[2024-09-29 08:46] LABS: Prostate Specific Antigen Scrn 0.442 ng/mL (0.1-4.0)
[2024-09-29 10:46] LABS: Free T4, Direct Thyroxine 1.04 ng/dL (0.78-2.19)
[2024-09-30 04:08] LABS: Apolipoprotein B 71 mg/dL (<90)
== END ==
PROVIDERS: PCP Family Medicine; Referring Provider Family Medicine; Visit Provider Family Medicine
DX: Z00.00 Encounter for general adult medical examination without abnormal findings (principal); R73.03 Prediabetes; E03.9 Hypothyroidism, unspecified; Z12.5 Encounter for screening for malignant neoplasm of prostate; E78.5 Hyperlipidemia, unspecified; I10 Essential (primary) hypertension; F17.210 Nicotine dependence, cigarettes, uncomplicated; K22.70 Barrett's esophagus without dysplasia; I71.40 Abdominal aortic aneurysm, without rupture, unspecified
CPT/HCPCS: 36415; 80053; 80061; 82043; 82172; 82570; 83036; 84439; 84443; 85025; G0103

== ENCOUNTER → 2024-11-15 09:40 | Outpatient (CLI) | payer MEDICARE, SELFPAY ==
[2024-11-15 10:20] LABS: Add Manual Diff / Slide Review NO; Basophils Absolute Auto 100 /uL (0-100); Basophils Percent Auto 1.8 % (0-2); Eosinophils Absolute Auto 400 /uL (0-450); Eosinophils Percent Auto 4.9 % (2-4); Hematocrit 43.3 % (41-53); Hemoglobin 14.5 g/dL (13.5-17.5); Lymphocytes Absolute Auto 2200 /uL (1100-4500); Lymphocytes Percent Auto 26.2 % (25-40); Mean Corpuscular HGB Conc 33.5 % (30-36); Mean Corpuscular Hemoglobin 28.3 PG (26-34); Mean Corpuscular Volume 84.7 fL (80-100); Monocytes Absolute Auto 700 /uL (0-900); Monocytes Percent Auto 8.7 % (3-14); Neutrophils Absolute Auto 4900 /uL (1500-7000); Neutrophils Percent Auto 58.4 % (50-75); Platelet Count 198 X10^3/uL (150-400); Red Blood Cell Count 5.11 X10^6/uL (4.5-5.9); Red Cell Distribution Width 15.1 % (11.6-14.8); White Blood Cell Count 8.5 X10^3/uL (4.5-11.0)
[2024-11-15 11:28] LABS: Alanine Aminotransferase 17 IU/L (<50); Albumin 4.6 g/dL (3.5-5.0); Albumin Globulin Ratio 1.6 (1.0-2.8); Alkaline Phosphatase 93 U/L (38-126); Aspartate Aminotransferase 25 IU/L (17-59); BUN Creatinine Ratio 12.8 (6-22); Bilirubin Total 0.7 mg/dL (0.2-1.3); Blood Urea Nitrogen 19 mg/dL (9-20); Calcium 10.3 mg/dL (8.4-10.2); Carbon Dioxide 24 mmol/L (22-32); Chloride 108 mmol/L (98-107); Estimated Glomerular Filt Rate 47 mL/min (>60); Globulin 2.8 g/dL (1.7-4.1); Glucose 107 mg/dL (80-110); HEMOLYSIS < 15 (0-50); Potassium 4.5 mmol/L (3.4-5.1); Sodium 146 mmol/L (137-145); Total Protein 7.4 g/dL (6.3-8.2)
[2024-11-15 11:59] LABS: TSH w/ Reflex to FT4 6.84 uIU/mL (0.47-4.68)
[2024-11-15 12:37] LABS: Free T4, Direct Thyroxine 0.99 ng/dL (0.78-2.19)
[2024-11-15 14:10] LABS: Microalbumin Urine Random 9.2 mg/dL (0-1.6)
== END ==
PROVIDERS: PCP Family Medicine; Referring Provider Family Medicine; Visit Provider Family Medicine
DX: E03.9 Hypothyroidism, unspecified (principal); R73.03 Prediabetes; E04.1 Nontoxic single thyroid nodule; R79.89 Other specified abnormal findings of blood chemistry
CPT/HCPCS: 36415; 80053; 82043; 82570; 84439; 84443; 85025

== ENCOUNTER → 2025-01-04 09:45 | Outpatient (CLI) | payer MEDICARE, SELFPAY ==
[2025-01-04 10:24] LABS: Hematocrit 40.8 % (41-53); Hemoglobin 13.7 g/dL (13.5-17.5)
[2025-01-04 10:42] LABS: BUN Creatinine Ratio 15.8 (6-22); Blood Urea Nitrogen 26 mg/dL (9-20); Calcium 9.5 mg/dL (8.4-10.2); Carbon Dioxide 25 mmol/L (22-32); Chloride 105 mmol/L (98-107); Estimated Glomerular Filt Rate 42 mL/min (>60); Glucose 105 mg/dL (70-99); HEMOLYSIS < 15 (0-50); Sodium 139 mmol/L (137-145)
[2025-01-04 16:14] LABS: Creatinine Urine Random 227.03 mg/dL; Protein (Total) Urine Random 15 mg/dL (0-12); Protein Creatinine Ratio Urine 0.06 GRAM/24H
== END ==
PROVIDERS: PCP Family Medicine; Referring Provider Student in an Organized Health Care Education/Training Program; Visit Provider Student in an Organized Health Care Education/Training Program
DX: N05.9 Unspecified nephritic syndrome with unspecified morphologic changes (principal); D70.9 Neutropenia, unspecified; D63.1 Anemia in chronic kidney disease; R80.9 Proteinuria, unspecified
CPT/HCPCS: 36415; 80048; 82570; 84156; 85014; 85018

== ENCOUNTER → 2025-02-06 14:47 | Outpatient (CLI) | payer MEDICARE, SELFPAY ==
--- NOTE | 2025-02-06 14:50 | DI.US.S_ITS ---
PROCEDURE: US RENAL COMPLETE INDICATIONS: STAGE 3B CHRONIC KIDNEY DISEASE TECHNIQUE: Real-time scanning was performed of the kidneys and bladder, with image documentation. COMPARISON: CT angio abdomen pelvis 02/29/2024. FINDINGS: Kidneys: Right kidney is normal in size; left kidney is mildly atrophic with cortical thinning. Right kidney measures 10.1 cm long; left kidney measures 9.9 cm long. Right renal cortical thickness is 1.2 cm; left renal cortical thickness is 0.7 cm. There are multiple punctate echogenic foci within the left renal parenchyma favored to represent small vascular calcifications. No obstructing renal calculi or hydronephrosis. No suspicious solid mass lesions. Bladder: Pre-void bladder volume is 57 mL. Post-void residual unable to be assessed. Pre-void images demonstrate no intraluminal masses or stones. Limited evaluation of prevoid bladder images demonstrate no gross abnormalities. Miscellaneous: No free pelvic fluid. Heterogeneous appearing prostate. IMPRESSION: No obstructing nephrolithiasis or hydronephrosis. Mild asymmetric left renal atrophy and cortical thickening compared to the right kidney. Approved by: Pastora Farmer M.D.,Ph.D. on 02/07/2025 at 8:56
== END ==
PROVIDERS: PCP Family Medicine; Referring Provider Family Medicine; Visit Provider Student in an Organized Health Care Education/Training Program
DX: N18.32 Chronic kidney disease, stage 3b (principal)
CPT/HCPCS: 76770

== ENCOUNTER → 2025-02-17 09:58 | Outpatient (CLI) | payer MEDICARE, SELFPAY ==
[2025-02-17 10:30] LABS: Hematocrit 43.4 % (41-53); Hemoglobin 14.4 g/dL (13.5-17.5)
[2025-02-17 10:46] LABS: BUN Creatinine Ratio 13.3 (6-22); Blood Urea Nitrogen 22 mg/dL (9-20); Calcium 9.7 mg/dL (8.4-10.2); Carbon Dioxide 23 mmol/L (22-32); Chloride 106 mmol/L (98-107); Estimated Glomerular Filt Rate 41 mL/min (>60); Glucose 110 mg/dL (70-99); HEMOLYSIS < 15 (0-50); Phosphorous 3.4 mg/dL (2.3-3.7); Potassium 4.3 mmol/L (3.4-5.1); Sodium 142 mmol/L (137-145)
[2025-02-17 15:15] LABS: Creatinine Urine Random 171.34 mg/dL; Protein (Total) Urine Random 18 mg/dL (0-12)
[2025-02-21 07:36] LABS: Parathyroid Hormone Int 65 pg/mL (15-65)
== END ==
PROVIDERS: PCP Family Medicine; Referring Provider Student in an Organized Health Care Education/Training Program; Visit Provider Student in an Organized Health Care Education/Training Program
DX: D70.9 Neutropenia, unspecified (principal); E83.30 Disorder of phosphorus metabolism, unspecified; D63.1 Anemia in chronic kidney disease; N05.9 Unspecified nephritic syndrome with unspecified morphologic changes; N25.81 Secondary hyperparathyroidism of renal origin; R80.9 Proteinuria, unspecified
CPT/HCPCS: 36415; 80048; 82570; 83970; 84100; 84156; 85014; 85018

== ENCOUNTER → 2025-06-22 06:57 | Outpatient (CLI) | payer MEDICARE, SELFPAY ==
[2025-06-22 07:56] LABS: Hematocrit 41.1 % (41-53); Hemoglobin 13.9 g/dL (13.5-17.5)
[2025-06-22 08:12] LABS: Blood Urea Nitrogen 23 mg/dL (9-20); Calcium 9.9 mg/dL (8.4-10.2); Carbon Dioxide 22 mmol/L (22-32); Chloride 109 mmol/L (98-107); Estimated Glomerular Filt Rate 53 mL/min (>60); Glucose 117 mg/dL (70-99); HEMOLYSIS < 15 (0-50); Potassium 5.0 mmol/L (3.4-5.1); Sodium 142 mmol/L (137-145)
[2025-06-22 08:23] LABS: Protein (Total) Urine Random 13 mg/dL (0-12); Protein Creatinine Ratio Urine 0.14 GRAM/24H
== END ==
PROVIDERS: PCP Family Medicine; Referring Provider Student in an Organized Health Care Education/Training Program; Visit Provider Student in an Organized Health Care Education/Training Program
DX: D70.9 Neutropenia, unspecified (principal); N05.9 Unspecified nephritic syndrome with unspecified morphologic changes; N25.81 Secondary hyperparathyroidism of renal origin; D63.1 Anemia in chronic kidney disease; R80.9 Proteinuria, unspecified
CPT/HCPCS: 36415; 80048; 82570; 83970; 84156; 85014; 85018

== ENCOUNTER → 2025-08-08 07:18 | Outpatient (CLI) | payer MEDICARE, SELFPAY ==
[2025-08-08 07:53] LABS: Hematocrit 42.9 % (41-53); Hemoglobin 14.4 g/dL (13.5-17.5); Mean Corpuscular HGB Conc 33.5 % (30-36); Mean Corpuscular Hemoglobin 28.8 PG (26-34); Mean Corpuscular Volume 85.9 fL (80-100); Platelet Count 176 X10^3/uL (150-400)
[2025-08-08 08:13] LABS: Blood Urea Nitrogen 23 mg/dL (9-20); Calcium 10.0 mg/dL (8.4-10.2); Carbon Dioxide 25 mmol/L (22-32); Chloride 108 mmol/L (98-107); Cholesterol 100 mg/dL (140-199); Estimated Glomerular Filt Rate 53 mL/min (>60); Glucose 104 mg/dL (70-99); HDL Cholesterol 43 mg/dL (40-60); HEMOLYSIS < 15 (0-50); Potassium 4.0 mmol/L (3.4-5.1); Sodium 145 mmol/L (137-145); Triglycerides 111 mg/dL (35-150)
== END ==
PROVIDERS: PCP Family Medicine; Referring Provider Family Medicine; Visit Provider Internal Medicine Cardiovascular Disease
DX: I25.10 Atherosclerotic heart disease of native coronary artery without angina pectoris (principal)
CPT/HCPCS: 36415; 80048; 80061; 85027